=== PATIENT | female | born 1975 ===

== ENCOUNTER 2018-04-30 09:27 | Emergency (ER) | payer BC ==
--- NOTE | 2018-04-30 10:32 | ED ---
Complex/Multi-Sys Presentation - HPI Summary HPI Summary: Patient is a 42 y/o F presenting to ED with complaints of intermittent disorientation that she characterizes as a dizziness/confusion for the past week. She states that episodes have become more frequent recently. She states that she almost fell over due to dizziness while stepping out of the shower today. Patient also reports that she had difficulty focusing while driving to work. At work, she states that she almost fell once more due to her dizziness. Patient reports that she has had an unsteady gait as well. She also endorses left sided chest pain, nausea, posterior pressure POTTS, tingling/numbness at BUE. Patient denies fever, cough, and sore throat. Hx of anxiety, patient is on ativan .5 mg that she takes "every once in a while". She took medication but reports Sx have persisted. In the room, patient asks, "I'm not having like a heart attack, right?" On triage, pain is rated 3/10. Nothing is noted to aggravate/alleviate Sx. Home medications and allergies are reviewed. - History Of Current Complaint Chief Complaint: EDNeurologicalDeficit Time Seen by Provider: 04/30/18 10:21 Hx Obtained From: Patient Onset/Duration: Lasting Weeks - 1 week, Still Present, Worse Since - today Timing: Intermittent, Lasting: Severity Currently: Mild - 3/10 Location: Pain At: - left sided chest Character: Pressure - POTTS Aggravating Factor(s): nothing Alleviating Factor(s): nothing Associated Signs And Symptoms: Positive: Confusion, Dizziness, Headache, Chest Pain, Nausea, Other - POSITIVE - NUMBNESS/TINGLING AT BLE, DIFFICULTY CONCENTRATING; NEGATIVE - SORE THROAT. Negative: Cough, Fever - Allergies/Home Medications Allergies/Adverse Reactions: Allergies Allergy/AdvReac Type Severity Reaction Status Date / Time No Known Allergies Allergy Verified 04/30/18 09:36 Home Medications: Home Medications Butalb/Acetamin/Caff TAB* [Fioricet TAB*] 1 tab PO Q8HR PRN 04/30/18 [History Confirmed 04/30/18] Cyclobenzaprine TAB* [Flexeril 10 MG TAB*] 10 mg PO BEDTIME 04/30/18 [History Confirmed 04/30/18] Eszopiclone 1 tab PO BEDTIME PRN 04/30/18 [History Confirmed 04/30/18] LORazepam [Lorazepam] 0.5 mg PO Q12HR PRN 04/30/18 [History Confirmed 04/30/18] PMH/Surg Hx/FS Hx/Imm Hx Sensory History: Denies: Hx Legally Blind, Hx Deafness Opthamlomology History: Denies: Hx Legally Blind EENT History: Denies: Hx Deafness Psychiatric History: Reports: Hx Anxiety Infectious Disease History: No Infectious Disease History: Denies: Traveled Outside the [place] in Last 30 Days - Family History Known Family History: Positive: Cardiac Disease Negative: Hypertension, Diabetes - Social History Alcohol Use: Weekly Substance Use Type: Reports: None Smoking Status (MU): Never Smoked Tobacco Review of Systems Negative: Fever Negative: Sore Throat Positive: Chest Pain Negative: Cough Positive: Nausea Neurological: Other - POSITIVE - DIZZINESS, CONFUSION, DIFFICULTY FOCUSING, TINGLING AT BLE Positive: Headache, Numbness - BLE All Other Systems Reviewed And Are Negative: Yes Physical Exam - Summary Physical Exam Summary: Appearance: Well appearing, no pain distress, anxious-appearing Skin: warm, dry, reflects adequate perfusion Head/face: normal Eyes: EOMI, YESI ENT: normal Neck: supple, non-tender Respiratory: CTA, breath sounds present Cardiovascular: tachycardic, pulses symmetrical Abdomen: non-tender, soft Musculoskeletal: normal, strength/ROM intact Neuro: normal, sensory motor intact, A&Ox3 Triage Information Reviewed: Yes Vital Signs On Initial Exam: Initial Vitals Temp Pulse Resp BP Pulse Ox 98.1 F 113 16 153/112 100 04/30/18 09:30 04/30/18 09:30 04/30/18 09:30 04/30/18 09:30 04/30/18 09:30 Vital Signs Reviewed: Yes Diagnostics - Vital Signs Vital Signs Temp Pulse Resp BP Pulse Ox 04/30/18 09:30 98.1 F 113 16 153/112 100 - Laboratory Result Diagrams: 04/30/18 10:46 04/30/18 10:46 Lab Statement: Any lab studies that have been ordered have been reviewed, and results considered in the medical decision making process. - Radiology CXR Radiology Interpretation Completed By: Radiologist Summary of Radiographic Findings: IMPRESSION: NO ACTIVE CARDIOPULMONARY DISEASE. THIS REPORT WAS REVIEWED BY ED PHYSICIAN. BRAIN MRI Radiology Interpretation Completed By: Radiologist Summary of Radiographic Findings: IMPRESSION: 1. SINUS MUCOSAL INFLAMMATORY DISEASE, WITH POLYPOID MUCOSAL THICKENING OF THE LEFT. MAXILLARY SINUS MEASURING UP TO 1.6 CM IN SIZE. 2. OTHERWISE UNREMARKABLE MRI OF THE BRAIN. THIS REPORT WAS REVIEWED BY ED PHYSICIAN. - CT brain ct CT Interpretation Completed By: Radiologist Summary of CT Findings: BRAIN CT IMPRESSION: NO ACUTE INTRACRANIAL PATHOLOGY. THIS REPORT WAS REVIEWED BY ED PHYSICIAN. - EKG 0941 Cardiac Rate: Tachycardia - rate of 105 BPM EKG Rhythm: Sinus Tachycardia Summary of EKG Findings: EKG sinus tachycardia with rate of 105 BPM, no acute changes. Re-Evaluation - Re-Evaluation First Eval Re-Evaluation Time: 15:55 Comment: Results of labs and tests so far were discussed. Patient is now complaining of chest pain. Another trop to be obtained. She notes that she does not want to be admitted. Second Eval Re-Evaluation Time: 17:10 Comment: Results of MRI and trop were discussed with patient, she will be discharged to home. She is agreeable with this. Complex Multi-Symp Course/Dx Course Of Treatment: Patient is a 42 y/o F presenting to ED with complaints of intermittent disorientation that she characterizes as a dizziness/confusion for the past week. She states that episodes have become more frequent recently. She states that she almost fell over due to dizziness while stepping out of the shower today. Patient also reports that she had difficulty focusing while driving to work. At work, she states that she almost fell once more due to her dizziness. Patient reports that she has had an unsteady gait as well. She also endorses left sided chest pain, nausea, posterior pressure POTTS, tingling/ numbness at BUE. Patient denies fever, cough, and sore throat. Hx of anxiety, patient is on ativan .5 mg that she takes "every once in a while". She took medication but reports Sx have persisted. In the room, patient asks, "I'm not having like a heart attack, right?". On physical exam, patient is noted to be tachycardic and anxious-appearing. Patient's case was discussed with Dr. Roberts at 1043. Dr. Roberts recommends MRI. Bloodwork, UA obtained. During ED course, patient received Magox 400 tab, 400 mg PO ONCE. CXR IMPRESSION: NO ACTIVE CARDIOPULMONARY DISEASE. EKG sinus tachycardia with rate of 105 BPM, no acute changes. BRAIN CT IMPRESSION: NO ACUTE INTRACRANIAL PATHOLOGY. Results of labs and tests so far were discussed. Patient is now complaining of chest pain. Another trop to be obtained. She notes that she does not want to be admitted. BRAIN MRI IMPRESSION: 1. SINUS MUCOSAL INFLAMMATORY DISEASE, WITH POLYPOID MUCOSAL THICKENING OF THE LEFT. MAXILLARY SINUS MEASURING UP TO 1.6 CM IN SIZE. 2. OTHERWISE UNREMARKABLE MRI OF THE BRAIN. Second trop was negative. Patient will be discharged to home and is instructed to follow up with PCP within three days. pt refusedadmission for chest pains and stress test am. witnessed her refusal. Results of MRI and trop were discussed with patient, she will be discharged to home. She is agreeable with this. - Diagnoses Provider Diagnoses: Anxiety, Chest pain, Sinusitis - Physician Notifications Discussed Care Of Patient With: Zachary Roberts Time Discussed With Above Provider: 10:43 Instructed by Provider To: Other - Patient's case was discussed with Dr. Roberts at 1043. Dr. Roberts recommends MRI. Discharge - Sign-Out/Discharge Documenting (check all that apply): Patient Departure - discharge - Discharge Plan Condition: Stable Disposition: HOME Prescriptions: Amoxicillin PO (*) [Amoxicillin 875 MG (*)] 875 mg PO BID #20 tab predniSONE [Prednisone 20 MG TAB] 40 mg PO ONCE #5 tablet Patient Education Materials: Chest Pain (ED), Sinusitis (ED), Anxiety (ED) Referrals: Stella Atwood MD [Primary Care Provider] - 3 Days Zachary Roberts MD [Medical Doctor] - 3 Days Valeriy Centeno MD [Medical Doctor] - 3 Days Additional Instructions: RETURN TO ED FOR ANY NEW OR WORSENING SYMPTOMS. FOLLOW UP WITH PRIMARY CARE PHYSICIAN, NEUROLOGIST, ENT DOCTOR WITHIN THREE DAYS. - Billing Disposition and Condition Condition: STABLE Disposition: Home - Attestation Statements Document Initiated by Emmanuel: Yes Documenting Scribe: LALA ALBA Provider For Whom Emmanuel is Documenting (Include Credential): MAIA CALIX MD Scribe Attestation: LALA eD Paz , scribed for MAIA CALIX MD on 04/30/18 at 2110. Scribe Documentation Reviewed: Yes Provider Attestation: The documentation as recorded by the LALA redman accurately reflects the service I personally performed and the decisions made by me, MAIA CALIX MD Status of Scribe Document: Viewed
[2018-04-30 12:04] LABS: INR 0.89 (0.77-1.02)
[2018-04-30 12:08] LABS: ABS Basophils 0 10^3/ul (0-0.2); ABS Eosinophils 0.1 10^3/ul (0-0.6); ABS Lymphocytes 1.7 10^3/ul (1.0-4.8); ABS Monocytes 0.4 10^3/ul (0-0.8); ABS Neutrophils 3.2 10^3/ul (1.5-7.7); ABS Nucleated RBC 0 10^3/ul; Eosinophil % 1.4 %; Hematocrit 38 % (35-47); Hemoglobin 12.6 g/dl (12.0-16.0); Lymphocyte % 31.1 %; Mean Corpuscular HGB Conc 33 g/dl (31-36); Mean Corpuscular Hemoglobin 30 pg (27-31); Mean Corpuscular Volume 91 fL (80-97); Mean Platelet Volume 7.3 fL (7.4-10.4); Nucleated Red Blood Cells % 0; Platelet Count 202 10^3/ul (150-450); Red Blood Count 4.13 10^6/ul (4.00-5.40); Red Cell Distribution Width 13 % (10.5-15); White Blood Count 5.3 10^3/ul (3.5-10.8)
[2018-04-30 12:24] LABS: ALT 15 U/L (7-52); AST 14 U/L (13-39); Albumin 4.3 g/dL (3.2-5.2); Albumin/Globulin Ratio 1.6 (1-3); Alkaline Phosphatase 48 U/L (34-104); Anion Gap 8 mmol/L (2-11); BUN/Creatinine Ratio 21.8 (8-20); Blood Urea Nitrogen 12 mg/dL (6-24); CO2 Carbon Dioxide 24 mmol/L (22-32); Calcium 9.2 mg/dL (8.6-10.3); Chloride 104 mmol/L (101-111); EGFR African American 147.4 (>60); EGFR Non-African American 121.8 (>60); Globulin 2.7 g/dL (2-4); Glucose 89 mg/dL (70-100); Magnesium 1.7 mg/dL (1.9-2.7); Potassium 3.8 mmol/L (3.5-5.0); Sodium 136 mmol/L (135-145)
[2018-04-30 12:29] LABS: HCG Pregnancy < 0.60 mIU/mL
[2018-04-30 12:37] LABS: TSH (Thyroid Stimulating Horm) 0.45 mcIU/mL (0.34-5.60)
[2018-04-30 13:47] LABS: Urine Appearance Cloudy; Urine Bilirubin Negative (Negative); Urine Blood Negative (Negative); Urine Color Straw; Urine Glucose Negative (Negative); Urine Ketones Trace (Negative); Urine Nitrite Negative (Negative); Urine Protein Negative (Negative); Urine Specific Gravity 1.008 (1.010-1.030); Urine Urobilinogen Negative (Negative)
[2018-04-30] MEDS ORDERED: Magnesium Oxide TAB* 400 MG PO ONE (14:25)
[2018-04-30] MEDS ORDERED: Gadoteridol* (CONTRAST) 279.3 MG/ML 10 ML IV ONE (15:39)
[2018-04-30 17:36] VITALS: BP 131/101
--- NOTE | 2018-04-30 19:45 | CONS ---
CONSULTATION REPORT: DATE OF CONSULT: 04/30/18 - EMERGENCY DEPT PATIENT OF: Dr. Stella Atwood and Dr. Mclean. HISTORY OF PRESENT ILLNESS: This is a 42-year-old woman who has not had any prior neurological symptoms and in the past week had a constellation of symptoms that began with chest pain and some palpitations. She has had palpitations in the past associated with anxiety. She has had some disorientation that has been intermittent over the past few days' time and since yesterday, she has also had some numbness and tingling that has gone down her arms and is in both hands. There has been no tingling in her ribs or in her feet. She has been somewhat dizzy and became off balance and it was hard for her to walk today. She was concerned that she had a heart attack and has a history of anxiety, she takes Ativan p.r.n. for her heart palpitations. She has had no hyperventilation with this episode. She has had no prior numbness, weakness, visual symptoms, disorientation. MEDICATIONS: Medicines at home include: 1. Lorazepam 0.5 q.12 hours p.r.n. anxiety. 2. Eszopiclone 1 tab p.r.n. 3. Flexeril 10 mg at bedtime. 4. Fioricet 1 t.i.d. She gets occasional headaches, but she has had no headaches with this. ALLERGIES: She has no known drug allergies. FAMILY HISTORY: She has family history of cardiac disease. SOCIAL HISTORY: She has no substance abuse and does not smoke. REVIEW OF SYSTEMS: Negative in all 14 spheres other than the HPI. PHYSICAL EXAM: Blood pressure 136/85, respirations 13, pulse 96, temperature 98.1. She is alert and oriented, with normal speech and comprehension. Cranial nerves II through XII were intact. Fundi were benign. Motor exam revealed normal tone, strength, coordination. Walking was tested and was completely normal. She had negative Romberg. Sensation intact to light touch. Reflexes were 2 and equal, downgoing toes. She feels much better now, although still has some of the chest pain. DIAGNOSTIC STUDIES/LAB DATA: I obtained an MRI scan given her dizziness, confusion, bilateral arm numbness to look for distinctive things like demyelinating disease. This was normal to my eye. It has not been officially read yet. A CT scan of her head was normal and this was done with and without contrast given the recent onset of her symptoms. She had a polyp in her left maxillary sinus. Blood work included normal CBC, INR, CMP, beta-HCG, and thyroid. UA was negative. IMPRESSION AND PLAN: I think that most likely this is anxiety, but I defer it to Dr. Mclean whether cardiac causes need to be looked for. I do not think this is demyelination, it cleared quite quickly today. Her MRI scan was negative, but it could be normal at the onset. She sees a chiropractor, has had some of her symptoms go into both arms, I recommended to check an MRI scan of the C- spine as an outpatient. We should also screen her with an EEG for seizures, although I think that this is unlikely and this can be done as an outpatient in the next few days. I will see her back in followup with these things. Thanks for sharing her case. [id number]/CPS #: [id number] NATALIE
== END 2018-04-30 17:41 | disposition home or self-care (01) ==
LOC: ED 09:27
DX: F41.9 Anxiety disorder, unspecified (principal); R07.89 Other chest pain; J32.9 Chronic sinusitis, unspecified; R00.0 Tachycardia, unspecified; Z82.49 Family history of ischemic heart disease and other diseases of the circulatory system
CPT/HCPCS: 36415; 70450; 70553; 71045; 80053; 81003; 83735; 84443; 84484; 84702; 85025; 85610; 93005; 99283; A9579